=== PATIENT | male | born 1990 | race Caucasian/White ===

== ENCOUNTER 2021-07-19 19:33 | Emergency (ER) | payer BC ==
[~2021-07-19] VITALS: Ht 182.9 cm; Wt 93.0 kg
[2021-07-19 19:37] VITALS: BP_SYST 127
[2021-07-19] MEDS ORDERED: NAPR-1172 PO (21:07)
[2021-07-19 21:10] VITALS: BP_SYST 127
== END 2021-07-19 21:10 | disposition home or self-care (01) ==
LOC: SED 19:33
DX: S92.355A Nondisplaced fracture of fifth metatarsal bone, left foot, initial encounter for closed fracture (principal); Z79.899 Other long term (current) drug therapy; W22.8XXA Striking against or struck by other objects, initial encounter; Y93.89 Activity, other specified; Y92.89 Other specified places as the place of occurrence of the external cause; Y99.8 Other external cause status
CPT/HCPCS: 99283